=== PATIENT | male | born 1995 | race Two or more races ===

== ENCOUNTER 2022-03-17 03:04 | Inpatient (IN) | payer OTHER ==
[2022-03-17 03:22] VITALS: BMI 24.3
[2022-03-17] MEDS ORDERED: BISMUTH SUBSALICYLATE 524 MG/30 ML PO PRN (05:48)
[2022-03-17] MEDS ORDERED: IBUPROFEN 400 MG TABLET (FP) PO PRN (05:48)
[2022-03-17] MEDS ORDERED: ACETAMINOPHEN 325 MG TABLET (FP) PO PRN ×2 (05:48)
[2022-03-17] MEDS ORDERED: DICYCLOMINE HCL 10 MG CAPSULE PO PRN (05:48)
[2022-03-17] MEDS ORDERED: BENZOCAINE/MENTHOL (CHLORASEPTIC ) LOZENGE MM PRN (05:48)
[2022-03-17] MEDS ORDERED: MAGNESIUM CITRATE 300 ML BOTTLE PO PRN (05:48)
[2022-03-17] MEDS ORDERED: ONDANSETRON *ODT* 4 MG TABLET SL PRN (05:48)
[2022-03-17] MEDS ORDERED: MAG HYDROX/AL HYDROX/SIMETH 30 ML UNIT-DOSE CUP PO PRN (05:48)
[2022-03-17] MEDS ORDERED: LOPERAMIDE HCL 2 MG CAPSULE PO PRN (05:48)
[2022-03-17] MEDS ORDERED: MAGNESIUM HYDROX 2400MG/30ML ORAL SUSPENSION 30 ML CUP PO PRN (05:48)
[2022-03-17] MEDS: cloNIDine HCL 0.1 MG TABLET PO PRN ×3 (10:21→23:05)
[2022-03-17] MEDS: PRENATAL VITAMINS W/ FOLIC ACID TABLET (FP) PO SCH (10:21)
[2022-03-17] MEDS: LORATADINE 10 MG TABLET PO SCH (10:21)
[2022-03-17] MEDS: NICOTINE 10 MG CARTRIDGE (INHALER) IH PRN (10:21)
[2022-03-17] MEDS: METHOCARBAMOL 500 MG TABLET PO PRN (10:21)
[2022-03-17] MEDS: NICOTINE 21 MG/24 HOURS TOPICAL PATCH TD SCH (10:21)
[2022-03-17] MEDS ORDERED: methaDONE HCL 10 MG TABLET (FOR DETOX USE ONLY) PO ONE (10:28)
[2022-03-17 15:05] LABS: HEMATOCRIT 43.8 % (35.4-49); HEMOGLOBIN 14.3 GM/dL (11.7-16.9); MCH 27.8 pg (25.7-33.7); MCHC 32.6 g/dl (32.0-35.9); MEAN CELL VOLUME 85.4 fl (80-96); MEAN PLT VOLUME 7.9 fl (7.5-11.1); PLATELET COUNT 306 10^3/uL (134-434); RBC 5.13 M/mm3 (4.00-5.60); RDW 14.1 % (11.9-15.9); WHITE BLOOD COUNT 6.9 K/mm3 (4.0-10.0)
[2022-03-17 16:47] LABS: CALCIUM 9.6 mg/dL (8.5-10.1)
[2022-03-17 16:48] LABS: BLOOD UREA NITROGEN 13.5 mg/dL (7-18)
[2022-03-17 16:50] LABS: CREATININE 0.8 mg/dL (0.55-1.3)
[2022-03-17 16:52] LABS: BILIRUBIN,TOTAL 0.5 mg/dL (0.2-1); TOT PROT 7.2 g/dl (6.4-8.2)
[2022-03-17] MEDS: diazePAM 5 MG TABLET PO PRN ×2 (17:06→22:14)
[2022-03-17] MEDS: hydrOXYzine PAMOATE 25 MG CAPSULE (FP) PO PRN ×2 (17:06→23:05)
[2022-03-17] MEDS ORDERED: MELATONIN 5 MG TABLETS PO SCH (22:00)
[2022-03-17] MEDS: THIAMINE HCL 100 MG TABLET (FP) PO SCH (22:14)
[2022-03-17] MEDS: MELATONIN 5 MG TABLETS PO SCH (22:15)
[2022-03-18] MEDS: diazePAM 5 MG TABLET PO PRN ×3 (07:06→22:07)
[2022-03-18] MEDS: hydrOXYzine PAMOATE 25 MG CAPSULE (FP) PO PRN (07:06)
[2022-03-18] MEDS: NICOTINE 10 MG CARTRIDGE (INHALER) IH PRN (08:40)
[2022-03-18] MEDS ORDERED: methaDONE HCL 10 MG TABLET (FOR DETOX USE ONLY) ONE (08:54)
[2022-03-18] MEDS: LORATADINE 10 MG TABLET PO SCH (10:09)
[2022-03-18] MEDS: METHOCARBAMOL 500 MG TABLET PO PRN (10:09)
[2022-03-18] MEDS: PRENATAL VITAMINS W/ FOLIC ACID TABLET (FP) PO SCH (10:09)
[2022-03-18] MEDS: NICOTINE 21 MG/24 HOURS TOPICAL PATCH TD SCH (10:10)
[2022-03-18] MEDS: THIAMINE HCL 100 MG TABLET (FP) PO SCH (22:07)
[2022-03-18] MEDS: MELATONIN 5 MG TABLETS PO SCH (22:08)
[2022-03-18] MEDS: cloNIDine HCL 0.1 MG TABLET PO PRN (22:11)
[2022-03-19] MEDS: diazePAM 5 MG TABLET PO PRN ×4 (04:17→22:18)
[2022-03-19] MEDS: hydrOXYzine PAMOATE 25 MG CAPSULE (FP) PO PRN ×2 (04:18→17:47)
[2022-03-19] MEDS: cloNIDine HCL 0.1 MG TABLET PO PRN (04:18)
[2022-03-19] MEDS ORDERED: methaDONE HCL 10 MG TABLET (FOR DETOX USE ONLY) PO ONE (10:00)
[2022-03-19 10:07] LABS: SARS-CoV-2 NAA Not Detected (Not Detected)
[2022-03-19] MEDS: LORATADINE 10 MG TABLET PO SCH (10:12)
[2022-03-19] MEDS: METHOCARBAMOL 500 MG TABLET PO PRN (10:12)
[2022-03-19] MEDS: NICOTINE 21 MG/24 HOURS TOPICAL PATCH TD SCH (10:13)
[2022-03-19] MEDS: PRENATAL VITAMINS W/ FOLIC ACID TABLET (FP) PO SCH (10:13)
[2022-03-19] MEDS: NICOTINE 10 MG CARTRIDGE (INHALER) IH PRN (22:16)
[2022-03-19] MEDS: MELATONIN 5 MG TABLETS PO SCH (22:16)
[2022-03-19] MEDS: THIAMINE HCL 100 MG TABLET (FP) PO SCH (22:17)
[2022-03-20 02:10] VITALS: BP 136/93; PULSE 100; TEMP 97.7
[2022-03-21] MEDS ORDERED: methaDONE HCL 10 MG TABLET (FOR DETOX USE ONLY) PO ONE (10:00)
== END 2022-03-20 01:53 | disposition left against medical advice (07) | DRG 770 ==
LOC: YASAS 03:04 → Y6N 06:22
PROVIDERS: ADMIT Allergy & Immunology; ATTEND Surgery
PROC: HZ2ZZZZ Detoxification Services for Substance Abuse Treatment (ICD-10-PCS; principal; 2022-03-17)
DX: F11.23 Opioid dependence with withdrawal (principal); F14.20 Cocaine dependence, uncomplicated; F12.20 Cannabis dependence, uncomplicated; F17.210 Nicotine dependence, cigarettes, uncomplicated; F19.280 Other psychoactive substance dependence with psychoactive substance-induced anxiety disorder; F19.282 Other psychoactive substance dependence with psychoactive substance-induced sleep disorder; Z28.310 Unvaccinated for COVID-19
CPT/HCPCS: 36415; 80053; 85027; 86780; 93005; 93010; C9803-CS; J0735; U0003; U0005